=== PATIENT | female | born 1955 ===

== ENCOUNTER 2019-05-06 20:37 | Emergency (ER) | payer SELFPAY ==
--- NOTE | 2019-05-06 20:50 | Emergency Department Report ---
Blank Doc - Documentation Documentation: 63-year-old female that presents with abdominal pain, headache, body aches, and bilateral hand tingling and numbness. Son stated that patient had a syncopal episode. Exam: neuro exam intact. No facial drooping. No weakness. normal strength. This initial assessment/diagnostic orders/clinical plan/treatment(s) is/are subject to change based on patient's health status, clinical progression and re- assessment by fellow clinical providers in the ED. Further treatment and workup at subsequent clinical providers discretion. Patient/guardians urged not to elope from the ED as their condition may be serious if not clinically assessed and managed. Initial orders include: 1- Patient sent to MAIN for further evaluation and treatment 2- labs 3- EKG 4- CT head
[2019-05-06] MEDS ORDERED: ACETAMINOPHEN 325 MG TAB PO ONE (20:56)
[2019-05-06 21:11] LABS: Basophils # (Auto) 0.1 K/mm3 (0.0-0.1); Basophils % (Auto) 1.2 % (0.0-1.8); Eosinophils # (Auto) 0.4 K/mm3 (0.0-0.4); Hematocrit 41.1 % (30.3-42.9); Hemoglobin 14.2 gm/dl (10.1-14.3); Lymphocytes # (Auto) 3.3 K/mm3 (1.2-5.4); Lymphocytes % (Auto) 34.6 % (13.4-35.0); Mean Corpuscular HGB Conc 35 % (30-34); Mean Corpuscular Volume 87 fl (79-97); Monocytes # (Auto) 0.6 K/mm3 (0.0-0.8); Monocytes % (Auto) 6.4 % (0.0-7.3); Platelet Count 241 K/mm3 (140-440); Red Blood Count 4.74 M/mm3 (3.65-5.03); Red Cell Distribution Width 12.6 % (13.2-15.2)
[2019-05-06 21:26] LABS: Alanine Aminotransferase 10 units/L (7-56); Albumin 4.1 g/dL (3.9-5); BUN/Creatinine Ratio 26; Blood Urea Nitrogen 21 mg/dL (7-17); Calcium 9.6 mg/dL (8.4-10.2); Hemolysis Index 16
--- NOTE | 2019-05-06 21:28 | Cat Scan Report ---
CT head/brain wo con INDICATION / CLINICAL INFORMATION: 63 years Female; Syncope. TECHNIQUE: Routine CT head without contrast. All CT scans at this location are performed using CT dos e reduction for ALARA by means of automated exposure control. COMPARISON: None. FINDINGS: BRAIN / INTRACRANIAL CONTENTS: No acute hemorrhage, mass effect, midline shift, hydrocephalus, or acu te, large territorial infarct. No chronic infarct or atrophy appreciated. There may be minimal, nonsp ecific white matter disease. CRANIOCERVICAL JUNCTION: No significant abnormality. ORBITS: No significant abnormality of visualized orbits. SINUSES / MASTOIDS: No significant abnormality the visualized paranasal sinuses or mastoid air cells. ADDITIONAL FINDINGS: Atherosclerotic disease is seen in the anterior circulation. IMPRESSION: 1. No focal mass, hemorrhage, hydrocephalus, or acute, large territorial infarct. Signer Name: Marty Shields MD, III Signed: 05/06/2019 9:24 PM Workstation Name: [id number]
[2019-05-06 21:32] LABS: Bilirubin,Urine NEG (Negative); Blood,Urine SM (Negative); Color,Urine Straw (Yellow); Protein,Urine <15 mg/dL mg/dL (Negative); Urobilinogen,Urine < 2.0 mg/dL (<2.0)
[2019-05-06] MEDS ORDERED: SODIUM CHLORIDE 0.9% 1000 ML 1,000 ML IV ONE (22:56)
[2019-05-06] MEDS ORDERED: HYDROmorphone 1 MG/1 ML INJ IV ONE (22:56)
--- NOTE | 2019-05-06 22:56 | Emergency Department Report ---
ED General Adult HPI - General Chief complaint: Abdominal Pain Stated complaint: ABD PAIN Time Seen by Provider: 05/06/19 20:51 Source: patient Mode of arrival: Ambulatory Limitations: No Limitations - History of Present Illness Initial comments: Patient is a 63-year-old female that presents emergency with complaints of headache, abdominal pain, numbness to her hands and lips and a syncopal episode. Patient states she's had abdominal pain for 1 week along with nausea and vomiting. Patient states she has a long history of pancreatitis. Patient stat es she is having pain in the same location as her last bout of pancreatitis in her left upper quadrant. Patient states her abdominal pain as a 10 out of 10. Patient states that abdominal pain is better with rest and worse with palpation and movement. He states her pain is also worse with vomiting. Patient states she was walking and became dizzy and lightheaded and then her lips and hands went numb and she passed out. Patient states her syncopal episode lasted approximately 15 seconds. Family at bedside and witnessed the syncopal episode. Patient states after she passed out she then developed a headache of a 5 out of 10. Patient states her headache is improving. Patient states her headache is better with rest and worse with walking. Patient denies fever or chills. Patient denies blood in her vomitus. Patient states she also had multiple bouts of diarrhea. Patient states that the numbness to her hands and lips have resolved after passing out. Patient states her current symptoms only involve headache and abdominal pain. -: Sudden Location: abdomen Radiation: non-radiation Severity scale (0 -10): 10 Quality: stabbing Consistency: constant Improves with: rest Worsens with: movement, other Associated Symptoms: headaches, malaise, nausea/vomiting, syncope. denies: confusion, chest pain, cough, diaphoresis, fever/chills, loss of appetite, rash, seizure, shortness of breath - Related Data Allergies Allergy/AdvReac Type Severity Reaction Status Date / Time No Known Allergies Allergy Unverified 05/06/19 21:02 ED Review of Systems ROS: Stated complaint: ABD PAIN Other details as noted in HPI Constitutional: malaise. denies: chills, fever Eyes: denies: eye pain, eye discharge, vision change ENT: denies: ear pain, throat pain Respiratory: denies: cough, shortness of breath, wheezing Cardiovascular: denies: chest pain, palpitations Endocrine: no symptoms reported Gastrointestinal: abdominal pain, nausea, vomiting, diarrhea. denies: constipation, hematemesis, melena, hematochezia Genitourinary: denies: urgency, dysuria, discharge Musculoskeletal: denies: back pain, joint swelling, arthralgia Skin: denies: rash, lesions Neurological: headache, other. denies: weakness, paresthesias Psychiatric: denies: anxiety, depression Hematological/Lymphatic: denies: easy bleeding, easy bruising ED Past Medical Hx - Past Medical History Previous Medical History?: Yes Hx Hypertension: Yes Additional medical history: Cyst on Pancrease, Pancreatitis. Thyroid Disease, High Cholesterol - Surgical History Past Surgical History?: Yes Hx Cholecystectomy: Yes Additional Surgical History: Hysterectomy - Family History Family history: no significant - Social History Smoking Status: Never Smoker Substance Use Type: None ED Physical Exam - General Limitations: No Limitations General appearance: alert, in no apparent distress - Head Head exam: Present: atraumatic, normocephalic - Eye Eye exam: Present: normal appearance, PERRL Pupils: Present: normal accommodation - ENT ENT exam: Present: mucous membranes dry - Neck Neck exam: Present: normal inspection - Respiratory Respiratory exam: Present: normal lung sounds bilaterally. Absent: respiratory distress, wheezes, rales - Cardiovascular Cardiovascular Exam: Present: regular rate, normal rhythm. Absent: systolic murmur, diastolic murmur, rubs, gallop - GI/Abdominal GI/Abdominal exam: Present: soft, tenderness (luq ttp), normal bowel sounds - Rectal Rectal exam: Present: deferred - Extremities Exam Extremities exam: Present: normal inspection - Back Exam Back exam: Present: normal inspection - Neurological Exam Neurological exam: Present: alert, oriented X3 - Psychiatric Psychiatric exam: Present: normal affect, normal mood - Skin Skin exam: Present: warm, dry, intact, normal color. Absent: rash ED Course Vital Signs 05/06/19 05/06/19 05/06/19 20:40 22:56 23:00 Temperature 97.8 F Pulse Rate 74 58 L Respiratory 16 18 11 L Rate Blood Pressure 183/50 166/54 Blood Pressure [Right] O2 Sat by Pulse 100 99 98 Oximetry 05/07/19 05/07/19 05/07/19 00:15 01:00 02:47 Temperature 97.8 F Pulse Rate 68 61 60 Respiratory 15 18 16 Rate Blood Pressure 134/48 142/56 Blood Pressure 130/49 [Right] O2 Sat by Pulse 97 100 97 Oximetry 05/07/19 05/07/19 05/07/19 03:00 03:46 04:15 Temperature Pulse Rate 58 L 55 L 55 L Respiratory 13 10 L 12 Rate Blood Pressure 150/53 131/42 120/41 Blood Pressure [Right] O2 Sat by Pulse 98 96 95 Oximetry 05/07/19 04:30 Temperature Pulse Rate 51 L Respiratory 11 L Rate Blood Pressure 136/47 Blood Pressure [Right] O2 Sat by Pulse 98 Oximetry - Reevaluation(s) Reevaluation #1: I discussed all results and patient. Discussed plan of care transfer patient. Patient agrees with plan to transfer. Patient states her pain is controlled. 05/07/19 02:44 - Consultations Consultation #1: I discussed case with vascular surgery. Dr. elena, Vascular surgery states he is going to look at the scan and call me backDr Elena, 05/07/19 00:34 Discussed the case with Dr. Barrios. Dr. Barrios recommends transfer to another facility for a embolization since we do not do spleen embolizations in this facility 05/07/19 01:23 Consultation #2: I discussed case with [facility] [place] 05/07/19 01:59 [facility] unable to get in contact with vascular surgery 05/07/19 02:30 Consultation #3: I discussed case with vascular surgery at [facility], Dr. Elena. Dr. Elena accepted the patient but wantshospitalist team to be aware of the patient. 05/07/19 02:43 [facility] is on ICU saturation. We will discuss with [facility] transfer center another rust 05/07/19 03:10 She has been accepted to [facility] by Dr. Salcedo. 05/07/19 04:15 ED Medical Decision Making - Lab Data Result diagrams: 05/06/19 20:58 05/06/19 20:58 - EKG Data -: EKG Interpreted by Me EKG shows normal: sinus rhythm, axis, intervals, QRS complexes, ST-T waves Rate: normal - Radiology Data Radiology results: report reviewed CT ABDOMEN AND PELVIS WITH IV CONTRAST INDICATION: Left upper quadrant pain. COMPARISON: None available. TECHNIQUE: Axial CT images were obtained through the abdomen and pelvis after 100 mL IV contrast. All CT scans at this location are performed using CT dose reduction for ALARA by means of automated exposure control. FINDINGS -- ABDOMEN: Lung Bases: No acute abnormality. Liver: Normal. Gallbladder: Removed. Bile Ducts: Normal. Pancreas: Large 7 x 4 x 3 cm pseudocyst arises from the tail the pancreas. There is active extravasation within the pseudocyst-like lesion possibly arising from the distal splenic vein.. Spleen: Normal. Adrenals: Normal. Right Kidney and Proximal Ureter: Normal. Left Kidney and Proximal Ureter: Normal. Stomach and Bowel: Normal. Lymph Nodes: No significant adenopathy. Aorta: Extensive atherosclerotic calcification throughout the abdominal aorta at least moderate stenosis involving the proximal aspect of the left common iliac artery.. IVC: Normal. Additional Findings: None. FINDINGS -- PELVIS: Urinary Bladder and Distal Ureters: Normal. Reproductive Organs: No acute abnormality. Appendix: Normal. Bowel: No acute abnormality. Free Fluid: None. Lymph Nodes: No significant adenopathy. Additional Findings: None. Skeletal System: No acute abnormality. IMPRESSION: Large 6 x 5 x 3 cm pancreatic tail pseudocyst with active contrast extravasation into the lumen of the pseudocyst, probably from the distal splenic vein but it is difficult to completely exclude extravasation from the adjacent splenic artery.. - Medical Decision Making Patient is a 63-year-old female up since emergency room with left upper quadrant abdominal pain. Patient had a CT done which shows rupture of a pseudocyst of the pancreas and a possible aneurysm of the splenic artery. Patient dynamically stable. Patient was labs unremarkable. Patient given Dilaudid for pain. She'll surgery here consultative and vascular surgery here states they're not able to treat a splenic artery aneurysm here. Patient transferred to [facility]. - Differential Diagnosis abd pain. luq pain. n/v. pancreatitis. Critical Care Time: Yes Critical care time in (mins) excluding proc time.: 80 Critical care attestation.: If time is entered above; I have spent that time in minutes in the direct care of this critically ill patient, excluding procedure time. Critical Care Time: 80 minutes ED Disposition Clinical Impression: Pancreatic pseudocyst/cyst, Splenic artery aneurysm, Abdominal aneurysm, ruptured Abdominal pain Qualifiers: Abdominal location: left upper quadrant Qualified Code(s): R10.12 - Left upper quadrant pain Headache Qualifiers: Headache type: unspecified Headache chronicity pattern: acute headache Intractability: not intractable Qualified Code(s): R51 - Headache Syncope Qualifiers: Syncope type: unspecified Qualified Code(s): R55 - Syncope and collapse Nausea & vomiting Qualifiers: Vomiting type: unspecified Vomiting Intractability: non-intractable Qualified Code(s): R11.2 - Nausea with vomiting, unspecified Disposition: DC/TX-70 ANOTHER TYPE HLTHCARE Is pt being admited?: No Does the pt Need Aspirin: No Condition: Critical Time of Disposition: 04:18
[2019-05-06] MEDS ORDERED: ONDANSETRON 4 MG/2 ML INJ IV ONE (22:57)
--- NOTE | 2019-05-07 00:18 | Cat Scan Report ---
CT ABDOMEN AND PELVIS WITH IV CONTRAST INDICATION: Left upper quadrant pain. COMPARISON: None available. TECHNIQUE: Axial CT images were obtained through the abdomen and pelvis after 100 mL IV contrast. All CT scans a t this location are performed using CT dose reduction for ALARA by means of automated exposure contro l. FINDINGS -- ABDOMEN: Lung Bases: No acute abnormality. Liver: Normal. Gallbladder: Removed. Bile Ducts: Normal. Pancreas: Large 7 x 4 x 3 cm pseudocyst arises from the tail the pancreas. There is active extravasat ion within the pseudocyst-like lesion possibly arising from the distal splenic vein.. Spleen: Normal. Adrenals: Normal. Right Kidney and Proximal Ureter: Normal. Left Kidney and Proximal Ureter: Normal. Stomach and Bowel: Normal. Lymph Nodes: No significant adenopathy. Aorta: Extensive atherosclerotic calcification throughout the abdominal aorta at least moderate steno sis involving the proximal aspect of the left common iliac artery.. IVC: Normal. Additional Findings: None. FINDINGS -- PELVIS: Urinary Bladder and Distal Ureters: Normal. Reproductive Organs: No acute abnormality. Appendix: Normal. Bowel: No acute abnormality. Free Fluid: None. Lymph Nodes: No significant adenopathy. Additional Findings: None. Skeletal System: No acute abnormality. IMPRESSION: Large 6 x 5 x 3 cm pancreatic tail pseudocyst with active contrast extravasation into the lumen of th e pseudocyst, probably from the distal splenic vein but it is difficult to completely exclude extrava sation from the adjacent splenic artery.. CRITICAL RESULT: Time of Discovery: 11:08 p.m. on the day of exam Time of Communication: 11:10 PM on the date of exam Licensed Practitioner Receiving Report: Annamarie Read Back Performed: Yes. Signer Name: Franki Greenberg MD Signed: 05/07/2019 12:14 AM Workstation Name: [id number]
[2019-05-07] MEDS ORDERED: HYDROmorphone 1 MG/1 ML INJ IV ONE (03:03)
[2019-05-07 04:56] VITALS: BP 136/47
== END 2019-05-07 05:28 | disposition other institution (70) ==
LOC: ED 20:37
DX: K86.2 Cyst of pancreas (principal); I72.8 Aneurysm of other specified arteries; R51 Headache; R55 Syncope and collapse; R11.2 Nausea with vomiting, unspecified; I10 Essential (primary) hypertension; E78.00 Pure hypercholesterolemia, unspecified; Z90.49 Acquired absence of other specified parts of digestive tract; Z90.710 Acquired absence of both cervix and uterus
CPT/HCPCS: 36415; 70450; 74177; 80053; 81001; 83690; 84484; 85025; 93005; 93010; 96374; 96375; 96376; 99291; 99292; J1170; J2405; J7030; Q9967